=== PATIENT | female | born 2005 | race Caucasian/White ===

== ENCOUNTER 2024-11-16 12:20 | Emergency (ER) | payer OTHER ==
[~2024-11-16] VITALS: Ht 165.1 cm; Wt 69.0 kg
[~2024-11-16 12:20] MED LIST: CETI-24 PO
[2024-11-16 12:22] VITALS: BP 121/73; TEMP 98.7; O2SAT 98
[2024-11-16] MEDS ORDERED: IBUP600T42 PO (12:41)
[2024-11-16] MEDS ORDERED: FLON1SPR NARES (12:41)
[2024-11-16] MEDS ORDERED: CLIN150C17 PO (12:41)
== END 2024-11-16 12:49 | disposition home or self-care (01) ==
LOC: M ED 12:20
DX: K02.9 Dental caries, unspecified (principal); H92.01 Otalgia, right ear; Z88.1 Allergy status to other antibiotic agents

== ENCOUNTER 2024-12-03 11:27 | Emergency (ER) | payer OTHER ==
[~2024-12-03] VITALS: Ht 165.1 cm; Wt 70.2 kg
[~2024-12-03 11:27] MED LIST changes: +CLIN150C17 PO; +FLON1SPR NARES; +IBUP600T42 PO
[2024-12-03 11:29] VITALS: TEMP 97.3
[2024-12-03] MEDS ORDERED: CIPR-249 PO (13:40)
[2024-12-03 13:46] VITALS: BP 154/83; O2SAT 100
== END 2024-12-03 13:50 | disposition home or self-care (01) ==
LOC: M ED 11:27
DX: T16.1XXA Foreign body in right ear, initial encounter (principal); Y92.9 Unspecified place or not applicable; Z88.0 Allergy status to penicillin; Z88.1 Allergy status to other antibiotic agents